=== PATIENT | female | born 1980 | race Two or more races ===

== ENCOUNTER 2020-04-29 14:52 | Emergency (ER) | payer OTHER ==
[~2020-04-29] VITALS: Ht 165.1 cm; Wt 94.3 kg
[2020-04-29] MEDS ORDERED: SYNTHROID150 MCG (15:09)
[2020-04-29] MEDS ORDERED: IRON325 MG PO (20:11)
== END 2020-04-29 20:35 | disposition home or self-care (01) ==
LOC: ER 14:52
DX: R00.2 Palpitations (principal); E21.3 Hyperparathyroidism, unspecified; Z20.822 Contact with and (suspected) exposure to COVID-19